=== PATIENT | female | born 1990 | race African-American/Black ===

== ENCOUNTER 2019-04-09 10:42 | Emergency (ER) | payer OTHER ==
[~2019-04-09] VITALS: Ht 152.4 cm; Wt 54.4 kg
[~2019-04-09 10:42] MED LIST: AMOXICILLIN 50500 M1 PO; CEPHALEXIN 250250 MG PO; CIPROFLOXACIN500 M1 PO; HUMALOG100 UNIT/1; LANTUS SUBQ; MACROBID 100 M100 M1 PO
[2019-04-09 10:44] VITALS: BP 102/59
[2019-04-09] MEDS ORDERED: LANTUS100 UNIT/M SUBQ (11:52)
[2019-04-09] MEDS ORDERED: HUMALOG100 UNIT/1 SUBQ (11:52)
== END 2019-04-09 11:56 | disposition home or self-care (01) ==
LOC: ER 10:42
DX: E11.9 Type 2 diabetes mellitus without complications (principal); H53.8 Other visual disturbances; Z76.0 Encounter for issue of repeat prescription; Z79.4 Long term (current) use of insulin; Z88.2 Allergy status to sulfonamides

== ENCOUNTER 2019-08-25 06:06 | Emergency (ER) | payer OTHER ==
[~2019-08-25] VITALS: Ht 160 cm; Wt 52.2 kg
[~2019-08-25 06:06] MED LIST changes: +HUMALOG100 UNIT/1 SUBQ; +LANTUS100 UNIT/M SUBQ
[2019-08-25] MEDS ORDERED: HUMALOG100 UNIT/1 SUBQ (06:21)
[2019-08-25 06:50] LABS: ABSOLUTE NEUTROPHILS 4.2 thou/uL (1.4-8.2); BASOPHILS 0.1 % (0.0-2.0); EOSINOPHILS 0.1 % (0.0-3.0); HEMATOCRIT 32.1 % (37.0-47.0); HEMOGLOBIN 10.4 gm/dL (12.0-15.0); LYMPHOCYTES 15.3 % (24.0-44.0); MCHC 32.4 g/dL (28.0-37.0); MCV 77.3 fL (80.0-100.0); PLATELET COUNT 265 thou/uL (150-400); POLYS 73.5 % (36.0-66.0); RBC 4.16 mil/uL (4.20-5.00); WBC 5.7 thou/uL (4.0-11.0)
[2019-08-25 06:57] LABS: CALCIUM 9.2 mg/dL (8.5-10.1); CREATININE 0.9 mg/dL (0.6-1.0); POTASSIUM 3.9 mmol/L (3.5-5.1)
[2019-08-25 07:03] LABS: ALBUMIN 3.2 g/dL (3.4-5.0); DIRECT BILIRUBIN 0.1 mg/dL (<0.1-0.2); TOTAL BILIRUBIN 0.5 mg/dL (<0.1-1.0); TOTAL PROTEIN 7.7 g/dL (6.4-8.2)
[2019-08-25 07:40] LABS: URINE BILIRUBIN NEGATIVE (Negative); URINE BLOOD NEGATIVE (Negative); URINE CLARITY CLEAR; URINE COLOR YELLOW; URINE GLUCOSE-RANDOM* 2+ (Negative); URINE KETONES 3+ (Negative); URINE NITRITE-REFLEX NEGATIVE (Negative); URINE PROTEIN (DIPSTICK) TRACE (Negative); URINE UROBILINOGEN 0.2 E.U./dl (0.2-1.0)
[2019-08-25 07:44] LABS: URINE LEUKOCYTES-REFLEX 1+ (Negative)
[2019-08-25 08:09] LABS: CASTS None Seen /LPF (None Seen); MUCUS 0-3 Light strn/LPF (None Seen); SQUAMOUS >10 Many /LPF (0-3)
[2019-08-25 08:10] LABS: BACTERIA-REFLEX >30 Many /HPF (None Seen); CRYSTALS None Seen /LPF (None Seen); URINE RBC None Seen /HPF (0-2); URINE WBC-REFLEX 6-15 Few /HPF (0-5)
[2019-08-25 08:27] VITALS: BP 102/64
--- NOTE | 2019-08-25 09:05 | EKG ---
[place] [address] [facility] [address] [place] [address] ELECTROCARDIOGRAM REPORT Name: KEKE DIGGS Room #: [facility]#: [id number] Admission: 08/25/19 Attend Phys: Discharge: 08/25/19 Date of : 89 Report #: [id number] THIS REPORT FOR: //name// [facility] ED Test Date: 2019-08-25 Test Time: 06:12:47 Pat Name: KEKE DIGGS Department: Room: Gender: F Food Quality Technician: RANDOLPH : 1990 Requested By: Justice Lozano Order Number: [id number] MD: Ranjit Jones Measurements Intervals [place] Rate: 112 P: 52 LA: 143 QRS: 53 QRSD: 80 T: -73 QT: 301 QTc: 411 Interpretive Statements Sinus tachycardia RSR' in V1 or V2, probably normal variant Nonspecific ST and T wave abnormality No previous ECG available for comparison Electronically Signed On 08-25-2019 9:05:09 ALUM MIXER by aRnjit Jones [email or web address] <ELECTRONICALLY SIGNED> By: Ranjit Jones MD, [facility] 08/25/19904 1 1 Ranjit Jones MD, FACC /EPI
== END 2019-08-25 08:27 | disposition home or self-care (01) ==
LOC: ER 06:06
PROVIDERS: Emergency Medicine
DX: J98.8 Other specified respiratory disorders (principal); E10.9 Type 1 diabetes mellitus without complications; Z79.4 Long term (current) use of insulin; Z88.2 Allergy status to sulfonamides

== ENCOUNTER 2019-08-26 17:05 | Inpatient (IN) | payer OTHER ==
[~2019-08-26] VITALS: Ht 152.4 cm; Wt 43.1 kg
--- NOTE | 2019-08-26 17:11 | NUR ---
Pt refusing vital signs until she is able to go to the bathroom. Attempted to assist to the bathroom, refusing to get out of bed to use restroom. Call light placed in reach, charge nurse informed.
[2019-08-26 17:12] VITALS: BP 137/67
--- NOTE | 2019-08-26 17:30 | NUR ---
PT IS USUALLY AMBULATORY AND IT IS REPORTED TO THIS SALES REPRESENTATIVE BUSINESS COURSES BY FAMILY MEMEBER THAT HE IS UPSET, HE STATES THAT PT HAS URINATED IN THE BED AND SHE IS SITTING IN IT. THIS SALES REPRESENTATIVE BUSINESS COURSES AT BEDSIDE AND ASSISTS CLEANING UP THE BED AND GIVEN PT PAPER SCRUB BOTTOMS. PT IS ASKED AT THIS TIME WHAT HAPPENED AND PT STATES THAT SHE TOLD HE NURSE THAT SHE HAD TO URINATE. NURSE DID SPEAK TO THIS SALES REPRESENTATIVE BUSINESS COURSES ABOUT PT NOT COOPERATIVE AND DID STATE TO HER THAT SHE NEEDED TO USE THE RESTROOM BUT REFUSED TO STAND AND PIVOT TO W/C OR COMMODE TO GO. AT THIS TIME PT AMBULATES WITH MINIMAL ASSIST FROM FAMILY DOWN THE PORRAS TO THE RESTROOM AND BACK WHILE THIS SALES REPRESENTATIVE BUSINESS COURSES CLEANS THE ROOM. AT THIS TIME PT SETTLED BACK IN BED, SHE CONTINUES TO REFUSE V/S
--- NOTE | 2019-08-26 18:32 | NUR ---
PT REFUSING VS, IN ROOM WITH LIGHTS OFF. REFUSING LABS AND NASAL SWAB AT THIS TIME. FAMILY AT BEDSIDE. STATES THAT PROVIDER STATED HE WOULD ORDER INSULIN FOR PATIENT. THIS DIRECTOR OF ATHLETICS COMMUNICATED WITH PROVIDER, WAS TOLD THAT INSULIN WAS NOT BEING ORDERED. COMMUNICATED WITH PATIENT AND FAMILY THAT INSULIN WOULD NOT BE ORDERED UNTIL ABLE TO DETERMINE CURRENT BLOOD GLUCOSE. EDUCATION PROVIDED REGARDING INSULIN AND ADVERSE EFFECTS IF GIVEN WITHOUT BLOOD GLUCOSE MONITORING.
--- NOTE | 2019-08-26 19:18 | NUR ---
PT ALLOWED NURSE TO OBTAIN VITALS, DRAW BLOOD AND GIVE MEDICATION ORDERED. PT STATES THAT SHE NEEDS TO USE RESTROOM. PT ASSISTED TO SIDE OF BED. REPORTS THAT SHE IS TOO WEAK TO GET TO BATHROOM. REQUESTED WHEELCHAIR. THIS REPAIR DEPARTMENT MANAGER SPOKE WITH PATIENT AND FAMILY ABOUT CONCERNS THAT PT NOT STRONG ENOUGH TO AMBULATE TO BATHROOM. INQUIRED IF FAMILY HAS SUPPORT AT HOME IF PT IS WEAK. FAMILY STATED SUPPORT NOT AVAILABLE. INFORMED FAMILY AND PT THAT THIS REPAIR DEPARTMENT MANAGER WOULD NOTIFY PROVIDER AND THAT THE WEAKNESS WAS A CONCERN. FAMILY STATED THEY COULD GET PATEITN UP TO WALK TO BATHROOM. REQUESTED THEY STAY AT BEDSIDE AND THIS REPAIR DEPARTMENT MANAGER WOULD GET COMMODE. WENT TO GET COMMODE AND CAME BACK IMMEDIATELY. PT FOUND STANDING AT BEDSIDE WITH HANDS BEHIND HER ON THE BED, URINATING ON THE FLOOR. PROVIDER NOTIFIED. ASSISTED PT BACK TO BED, CLEANED PT, BED AND NYA.
[2019-08-26 19:35] LABS: HEMATOCRIT 42.2 % (37.0-47.0); MCH 25.2 pg (26.0-34.0); RBC 5.03 mil/uL (4.20-5.00); RDW 15.7 % (10.5-14.5)
[2019-08-26 19:36] LABS: HEMOGLOBIN 12.7 gm/dL (12.0-15.0); MCV 83.9 fL (80.0-100.0); PLATELET COUNT 468 thou/uL (150-400); WBC 21.3 thou/uL (4.0-11.0)
[2019-08-26 19:41] LABS: BE(vivo) -28.7 mmol/L (-2 to +3); HCO3 4.7 mmol/L (22.0-26.0); PCO2 VENOUS 28.1 mmHg (41.0-51.0); PO2 VENOUS 54.9 mmHg (35.0-45.0)
[2019-08-26 19:54] LABS: ALBUMIN 4.1 g/dL (3.4-5.0); BUN 18 mg/dL (7-18); CALCIUM 10.2 mg/dL (8.5-10.1); CHLORIDE 99 mmol/L (98-107); CREATININE 1.5 mg/dL (0.6-1.0); SGOT 45 U/L (15-37); SGPT 42 U/L (30-65); SODIUM 132 mmol/L (136-145); TOTAL BILIRUBIN 0.5 mg/dL (<0.1-1.0); TOTAL PROTEIN 10.6 g/dL (6.4-8.2)
[2019-08-26 19:55] LABS: ANION GAP 28 mmol/L (7-16)
[2019-08-26 20:06] LABS: CO2 < 5 mmol/L (21-32); GLUCOSE 563 mg/dL (74-106); POTASSIUM 7.8 mmol/L (3.5-5.1)
[2019-08-26 20:28] LABS: URINE BILIRUBIN NEGATIVE (Negative); URINE BLOOD TRACE (Negative); URINE CLARITY CLEAR; URINE COLOR YELLOW; URINE GLUCOSE-RANDOM* 2+ (Negative); URINE KETONES 3+ (Negative); URINE LEUKOCYTES-REFLEX NEGATIVE (Negative); URINE NITRITE-REFLEX NEGATIVE (Negative); URINE PROTEIN (DIPSTICK) TRACE (Negative); URINE UROBILINOGEN 0.2 E.U./dl (0.2-1.0)
[2019-08-26 20:41] LABS: ABSOLUTE NEUTROPHILS 15.3 thou/uL (1.4-8.2); ANISOCYTOSIS 2+; BURR CELLS 1+; PLATELET ESTIMATE INCREASED; POIKILOCYTOSIS 2+
[2019-08-26 23:50] VITALS: BP 133/77
[2019-08-27] VITALS (43 sets, daily range): BP systolic 95–136; BP diastolic 54–85
--- NOTE | 2019-08-27 | NUR ---
ED NURSE ATTEMPTED TO CALL REPORT TO INPATIENT NURSE, WAS TOLD SHE WILL HAVE TO CALL BACK
[2019-08-27 00:43] LABS: ALBUMIN 3.3 g/dL (3.4-5.0); BUN 18 mg/dL (7-18); CALCIUM 9.6 mg/dL (8.5-10.1); CHLORIDE 111 mmol/L (98-107); CREATININE 1.4 mg/dL (0.6-1.0); GLUCOSE 496 mg/dL (74-106); PHOSPHORUS 7.2 mg/dL (2.5-4.9)
[2019-08-27 00:48] LABS: ANION GAP 28 mmol/L (7-16); POTASSIUM 5.5 mmol/L (3.5-5.1); SODIUM 144 mmol/L (136-145)
[2019-08-27 00:50] LABS: CO2 < 5 mmol/L (21-32)
--- NOTE | 2019-08-27 00:57 | NUR ---
0030 PT ARRIVED FROM ED VIA STRETCHER. PLACED ON TELEMETRY. PT REMAINS ST AND WITH RR IN 30s. UNABLE TO GET A TEMP ON PT SO PLACED EPI HUGGER ON. RECEIVED RECENT LABS BACK FROM MIDNIGHT DRAW. WILL CONTINUE TO FOLLOW THE PROTOCOL FOR DKA
[2019-08-27 05:23] LABS: HEMATOCRIT 41.1 % (37.0-47.0); HEMOGLOBIN 11.9 gm/dL (12.0-15.0); MCH 24.8 pg (26.0-34.0); MCHC 28.9 g/dL (28.0-37.0); MCV 85.8 fL (80.0-100.0); RBC 4.79 mil/uL (4.20-5.00); RDW 16.6 % (10.5-14.5); WBC 19.7 thou/uL (4.0-11.0)
[2019-08-27 05:29] LABS: MAGNESIUM 2.3 mg/dL (1.8-2.4); PHOSPHORUS 3.9 mg/dL (2.5-4.9)
[2019-08-27 05:56] LABS: ALBUMIN 3.4 g/dL (3.4-5.0); ANION GAP 29 mmol/L (7-16); BUN 17 mg/dL (7-18); CALCIUM 9.5 mg/dL (8.5-10.1); CHLORIDE 110 mmol/L (98-107); CREATININE 1.5 mg/dL (0.6-1.0); GLUCOSE 423 mg/dL (74-106); POTASSIUM 5.1 mmol/L (3.5-5.1); SGOT 43 U/L (15-37); SGPT 31 U/L (30-65); SODIUM 144 mmol/L (136-145); TOTAL BILIRUBIN 0.4 mg/dL (<0.1-1.0); TOTAL PROTEIN 9.7 g/dL (6.4-8.2)
[2019-08-27 06:00] LABS: CO2 < 5 mmol/L (21-32)
[2019-08-27 08:52] LABS: CALCIUM 9.6 mg/dL (8.5-10.1); CREATININE 1.5 mg/dL (0.6-1.0); MAGNESIUM 1.8 mg/dL (1.8-2.4); PHOSPHORUS 0.7 mg/dL (2.5-4.9)
[2019-08-27 08:59] LABS: POTASSIUM 3.3 mmol/L (3.5-5.1)
--- NOTE | 2019-08-27 09:25 | HC ---
[facility] [place] [address] [address] CONSULTATION Name: KEKE DIGGS Room #: 236-P [facility] IN M.R.#: [id number] Admission: 08/26/19 Attend Phys: River Iqbal Discharge: Date of : [birth year] Report #: [id number] THIS REPORT FOR: //name// CC: FAM physician/PCP River Iqbal DATE OF SERVICE: 08/27/2019 ENDOCRINE CONSULTATION NOTE CONSULTING PHYSICIAN: Dr. Braun. REASON FOR CONSULTATION: Diabetic ketoacidosis, uncontrolled type 1 diabetes mellitus. HISTORY OF PRESENT ILLNESS: This is a 28-year-old female patient whose medical background is primarily remarkable for type 1 diabetes mellitus that was diagnosed at the age of 12 years. The patient presented to the ER yesterday with a 24-hour course of rapidly progressive abdominal pain, nausea, vomiting as well as diarrhea. The patient appreciated fever or chills coming in. On arrival, the patient was found to be in diabetic ketoacidosis and was admitted for further care and monitoring. Again, the patient was diagnosed with type 1 diabetes mellitus at the age of 12 years and she is maintained on a regimen of Lantus insulin 20 units daily as well as Humalog before meals, taken variably as per her blood sugar and meal size, but could run a dose of up to 10 units with meals. The patient notes that she has had blood glucose values that have primarily in the 100-150 mg/dL range and has not had major difficulties with hypoglycemia. The patient maintains that she had been compliant with insulin intake and did not have major therapeutic interruptions over the past few weeks. The patient is not aware of issues of diabetic retinopathy, diabetic nephropathy or neuropathy. She does not take any other medicines besides insulin. REVIEW OF SYSTEMS: CONSTITUTIONAL: Fatigue, tiredness, fever or chills. No major weight changes over the past few months. HEENT: Negative for sinus pain or ear drainage. PULMONARY: Occasional shortness of breath and cough, but no hemoptysis. CARDIAC: No chest pain, but had intermittent palpitations over the past few days. Slight lightheadedness. NEUROLOGY: Negative for loss of consciousness, severe, recurrent headaches or seizure activity. GASTROINTESTINAL: Abdominal discomfort, nausea, vomiting, diarrhea. No hematemesis. [facility] [address] [place] [address] CONSULTATION Name: KEKE DIGGS LUIS ENRIQUE Room #: [address] [place] [address] IN M.R.#: [id number] Admission: 08/26/19 Attend Phys: River Iqbal Discharge: Date of : 89 Report #: [id number] SKIN: No ulceration, rash or other major dermatologic issues. PSYCHIATRIC: Negative for delusions, hallucinations. Otherwise, review of systems noncontributory other than those mentioned in HPI. PAST MEDICAL HISTORY: Type 1 diabetes mellitus as noted above. OUTPATIENT MEDICATIONS: 1. Lantus insulin 20 units q.p.m. 2. Humalog insulin up to 10 units t.i.d. a.c. ALLERGIES: SULFA. FAMILY HISTORY: Noncontributory. SOCIAL HISTORY: The patient denies use of tobacco, alcohol or illicit drugs. PHYSICAL EXAMINATION: GENERAL: A young -[place] female patient who appears lethargic, tired and somnolent, but not in apparent pain. VITAL SIGNS: Blood pressure 96/59 mmHg, heart rate is 115 beats per minute, respirations 27 per minute, temperature of 36.4 degrees. CONSTITUTIONAL: The patient appears lethargic, somnolent, but not in apparent pain or distress. HEENT: Anicteric sclerae. Intact extraocular motions. NECK: Supple, without JVD, carotid bruits or lymphadenopathy. I do not appreciate thyromegaly. CHEST: Noted for moderate entry bilaterally. Clear to auscultation. HEART: Regular rate and rhythm without murmurs or gallops. ABDOMEN: Soft and lax with generalized discomfort on deep palpation. No guarding, no organomegaly. Active bowel sounds. EXTREMITIES: Lower extremity exam is negative for ankle edema, skin breaks, ulcerations or other deformities. NEUROLOGIC: Lethargic, somnolent, but arousable and interactive. Largely has a nonfocal neurological examination. PSYCH: Flat mood and affect, but able to answer my questions appropriately. LABORATORY DATA: Blood glucose on arrival was 455 mg/dL and has over the course of the past 6 hours drop to 206 mg/dL. Otherwise, sodium 144, potassium 5.1, chloride 110, CO2 less than 5, anion gap 29, BUN 17, creatinine 1.5, glucose 423. AST 43, total bilirubin 0.4, calcium 9.5, phosphorus 3.9, magnesium 2.3, alkaline phosphatase 160, total protein 9.7, albumin 3.4, EGFR 51. Lactic acid 4.0. Acetone was high. White blood count 19.7, hemoglobin 11.9, hematocrit 41.1, platelets 425, pH 6.838, pCO2 28.1, bicarb 4.7, pO2 54.9. ASSESSMENT AND PLAN: 1. Diabetic ketoacidosis. The patient presents in diabetic ketoacidosis with a [facility] [address] [place] [address] CONSULTATION Name: KEKE DIGGS Room #: 236-P [facility] IN M.R.#: [id number] Admission: 08/26/19 Attend Phys: River Iqbal Discharge: Date of : [birth year] Report #: [id number] rather wide anion gap and severe acidosis. Currently, she is being appropriately treated with aggressive intravenous fluid management, IV insulin running currently at a rate of 30 units an hour. Her insulin intake will be adjusted hourly as per hour intravenous insulin protocol. Her electrolytes will be monitored intensively during the first 24 hours to address any emerging needs or abnormalities. 2. Type 1 diabetes mellitus. This is a longstanding diagnosis for the patient. She reports blood glucose values that appear to be reasonably controlled for the most part. I will obtain hemoglobin A1c to get a more objective sense of her overall outlook over the past few months. As noted above, the patient will be managed with a standard DKA protocol with IV insulin and once deemed stable, we could consider transition to subcutaneous insulin therapy. Her specific insulin regimen will be determined based on her insulin needs recorded once she is more stable. I certainly appreciate this consultation by Dr. Braun. <ELECTRONICALLY SIGNED> By: Juan Carlos Ramirez MD 08/27/1925 8 Juan Carlos Ramirez MD /nt
--- NOTE | 2019-08-27 09:44 | EKG ---
[address] [place] [address] ELECTROCARDIOGRAM REPORT Name: KEKE DIGGS Room #: 236-P ADM IN M.R.#: [id number] Admission: 08/26/19 Attend Phys: River Iqbal Discharge: Date of : 89 Report #: [id number] THIS REPORT FOR: //name// [facility] ED Test Date: 2019-08-26 Test Time: 20:17:01 Pat Name: KEKE DIGGS Department: Room: [facility] Gender: F Business Account Executive: HIRAM : 1990 Requested By: Curtis Zapien Order Number: [id number] MD: Ranjit Jones Measurements Intervals [place] Rate: 107 P: 88 VT: 174 QRS: 74 QRSD: 107 T: 51 QT: 337 QTc: 450 Interpretive Statements Sinus tachycardia Biatrial enlargement RSR' in V1 or V2, probably normal variant Compared to ECG 08/25/2019 06:12:47 Atrial abnormality now present ST (T wave) deviation no longer present Electronically Signed On 08-27-2019 9:44:29 METER CHANGES RECORDS CLERK by Ranjit Jones [email or web address] <ELECTRONICALLY SIGNED> By: Ranjit Jones MD, [facility] 08/27/19 0944 16 16 Ranjit Jones MD, [facility] /EPI
--- NOTE | 2019-08-27 14:08 | NUR ---
PT ADMITTED RELATED TO DKA, NAUSEA AND VOMITING, AND ABD PAIN. CM REVIEWED CHART AND SPOKE WITH CARE TEAM. CM MET WITH PT, SIG OTHER, AND FATHER AT BEDSIDE THIS DAY. PT WAS ORIENTED TO SELF BUT WAS SLEEPY. SHE, SIG OTHER, AND FATHER ALL ANSWERED ASSESSMENT QUESTIONS. IT WAS INDICATED THAT PT AND SIG OTHER KIANNA LIVE IN AN APARTMENT WITH WITH A CHILD AND 15 STEPS TO ENTER AND NO STEPS INSIDE. PT HAD BEEN INDEPDENENT WITH GAIT AND ADLS SEAT PACK INSPECTOR. SIG OTHER INDICATED THAT PT HAS ALL MEDICATIONS AND SUPPLIES NEEDED TO MONITOR HER BLOOD SUGARS AT HOME. PT INDICATED SHE DIDN'T HAVE A PCP RIGHT NOW. CM PROVIDED THEM LIST OF PCP'S HERE AT [facility]. PT INDICATED SHE PLANS TO RETURN HOME ONCE MEDICALLY STABLE. CM TO FOLLOW INDICATED WITH DC PLANNING.
[2019-08-27 14:25] LABS: ALBUMIN 2.7 g/dL (3.4-5.0); CALCIUM 9.5 mg/dL (8.5-10.1); CREATININE 1.3 mg/dL (0.6-1.0); MAGNESIUM 2.2 mg/dL (1.8-2.4); PHOSPHORUS 1.8 mg/dL (2.5-4.9); POTASSIUM 3.8 mmol/L (3.5-5.1)
[2019-08-27 18:54] LABS: CALCIUM 9.1 mg/dL (8.5-10.1); MAGNESIUM 1.9 mg/dL (1.8-2.4); PHOSPHORUS 1.9 mg/dL (2.5-4.9)
--- NOTE | 2019-08-27 19:36 | NUR ---
PATIENT PROGRESSING TOWARDS OUTCOME GOALS EVIDENT BY. ANION GAP HAS CLOSED AND SERUM POTASSIUM AND MAG LEVELS ARE WITHIN NORMAL RANGE WITH REPLACEMENT. REMAINS ON INSULIN DRIP TO MAINTAIN BLOOD GLUCOSE LEVEL UNDER 200. URINE OUTPUT GREATER THAN 50 ML/HR AND MEAN ARTERIAL PRESSURE IS GREATER THAN 65 MMGH, MONITOR SHOWING ST IN THE LOW 100'S AND RESP RATE REMAINS IN THE 20'S UNLESS ANXIOUS AND THEN ELEVATED. PAIN LEVEL ADDRESSED AND MEDICATED WITH PATIENT RESTING QUIETLY. NO DIARRHEA TODAY. PATIENT AND FAMILY UPDATED TO STATUS AND POC AND REASSURANCE GIVEN AND QUESTIONS ADDRESSED.
[2019-08-28] VITALS (12 sets, daily range): BP systolic 102–121; BP diastolic 62–90
[2019-08-28 00:29] LABS: ALBUMIN 2.5 g/dL (3.4-5.0); CALCIUM 8.4 mg/dL (8.5-10.1); MAGNESIUM 1.6 mg/dL (1.8-2.4); PHOSPHORUS 1.6 mg/dL (2.5-4.9); POTASSIUM 3.4 mmol/L (3.5-5.1)
--- NOTE | 2019-08-28 05:44 | NUR ---
Pt remains very weak, and reports feeling dizzy, she has been on bedrest through this shift. Monitor reads ST, low 100's and SR this morning 94 bpm and above, BP has been stable, low grade temp (99.4) noted at 0400. Pt had approx 150 ml's of dark emesis, and dry heaves, she declined any prn zofran, and was able to take two bites of sugar free jello. Otherwise, her assessment is benigh, she is on room air, LCTA, sats 94% and above. Abd is soft, hypoactive BS noted. Ac is patent draining approx 50 ml/hr of clear, dark yellow urine. She remains on hourly accuchecks, and insulin is infusing at 6 units/hr at this time.
[2019-08-28 09:01] LABS: MAGNESIUM 1.5 mg/dL (1.8-2.4); POTASSIUM 3.3 mmol/L (3.5-5.1)
[2019-08-28 14:24] LABS: HEMATOCRIT 28.5 % (37.0-47.0); MCH 24.9 pg (26.0-34.0); MCHC 32.7 g/dL (28.0-37.0); RBC 3.75 mil/uL (4.20-5.00); RDW 15.5 % (10.5-14.5); WBC 9.6 thou/uL (4.0-11.0)
[2019-08-28 14:35] LABS: HEMOGLOBIN 9.3 gm/dL (12.0-15.0); MCV 75.9 fL (80.0-100.0)
--- NOTE | 2019-08-28 15:15 | NUR ---
CARE TEAM INDICATED THAT PT IS PROGRESSING SLOWLY. PT WAS STARTED ON FULL LIQUID DIET, ON IV ABX. PT WILL LIKELY REMAIN HOSPITALIZED OVER THE WEEKEND. IT IS ANTICIPATED THAT PT WILL LIKELY DISHCARGE HOME WITH NO NEEDS ONCE MEDICALLY STABLE. CM TO FOLLOW INDICATED WITH DC PLANNING.
[2019-08-28 16:33] LABS: ALBUMIN 2.4 g/dL (3.4-5.0); CALCIUM 8.2 mg/dL (8.5-10.1); CREATININE 0.9 mg/dL (0.6-1.0); PHOSPHORUS 0.8 mg/dL (2.5-4.9); POTASSIUM 3.3 mmol/L (3.5-5.1)
--- NOTE | 2019-08-28 17:28 | NUR ---
VAT CONSULTED FOR A PICC FOR THIS PT IN ICU WITH DKA. A 5FRTLPICC PLACED RUAB. PULLED BACK 2CM AFTER CXR, PLEASE SEE INSERTION NI FOR DETAILS
--- NOTE | 2019-08-28 20:40 | NUR ---
PATIENT REMAINS ON INSULIN GTT WITH A BLOOD SUGAR OF 249. SPOKE WITH YUSUF KESSLER REGAURDING THE SCHEDULED INSULIN DUE TO BE GIVEN AT 2100 08/28. PER YUSUF KESSLER WE WILL HOLD THE SCHEDULED INSULIN DOSE, CONTINUE WITH THE INSULIN GTT THROUGHOUT THE NIGHT, AND REASSESS IN THE MORNING.
[2019-08-29] VITALS (11 sets, daily range): BP systolic 104–127; BP diastolic 66–84
[2019-08-29 00:20] LABS: ALBUMIN 2.4 g/dL (3.4-5.0); CALCIUM 8.1 mg/dL (8.5-10.1); CREATININE 0.9 mg/dL (0.6-1.0); MAGNESIUM 1.6 mg/dL (1.8-2.4); PHOSPHORUS 0.5 mg/dL (2.5-4.9); POTASSIUM 3.8 mmol/L (3.5-5.1)
[2019-08-29 04:56] LABS: ALBUMIN 2.4 g/dL (3.4-5.0); CALCIUM 8.5 mg/dL (8.5-10.1); CREATININE 0.7 mg/dL (0.6-1.0); MAGNESIUM 3.6 mg/dL (1.8-2.4); PHOSPHORUS 0.5 mg/dL (2.5-4.9); POTASSIUM 3.3 mmol/L (3.5-5.1)
[2019-08-29 10:04] LABS: ALBUMIN 2.6 g/dL (3.4-5.0); CALCIUM 8.7 mg/dL (8.5-10.1); CREATININE 0.9 mg/dL (0.6-1.0); PHOSPHORUS 0.7 mg/dL (2.5-4.9); POTASSIUM 4.2 mmol/L (3.5-5.1)
--- NOTE | 2019-08-29 19:00 | NUR ---
Report given to RN assuming care. Pt converted to subcutaneous Insulin today. Dr Iqbal notified pt's fingerstick glucose levels and Insulin dosing adjusted accordingly. Pt tachycardic throughout the day. Maintained adequate oxygenation on room air. Poor appetite.
[2019-08-30] VITALS (7 sets, daily range): BP systolic 107–116; BP diastolic 64–72
[2019-08-30 04:34] LABS: CALCIUM 8.6 mg/dL (8.5-10.1); CREATININE 0.7 mg/dL (0.6-1.0)
--- NOTE | 2019-08-30 05:37 | NUR ---
PT ALERT AND ORIENTED. PAIN CONTROLLED THROUGHOUT THE NIGHT. PT WALKED AROUND THE UNIT TWICE. VITAL SIGNS STABLE. PT HAS POSTITIVE OUTLOOK AND HAPPY WITH RECOVERY. CONTINUE TO MONITOR. PT PROGRESSING TOWARDS GOALS.
--- NOTE | 2019-08-30 05:40 | NUR ---
PT ALERT AND ORIENTED. PT TACHYCARDIC (RATE AROUNG 130'S) OCASSIONALLY AT NIGHT. BLOOD GLUCOSE CONTROLLED WITH SLIDING SCALE. PT PROGRESSING TOWARDS GOALS. POSSIBLE TRANSFER TO THE FLOOR.
--- NOTE | 2019-08-30 10:00 | NUR ---
0800-Pt was awake, oriented x 4. Pt was cooperative. LS clear but coarse on LLB. SR/STachycardia on monitor. No edema was present. Skin was intact. BS 336. Lantus 30unit was administered per order. Set schedule of insulin was discontinued since pt was concerned since her appetite was not great. 9units of insulin was administered per SS. Will continue to monitor
--- NOTE | 2019-08-30 10:04 | NUR ---
TRANSFER NOTES; Transfer information was given to pt and pt's mother. Pt's belongings were w/ pt. Pt was transferred to [facility] via W/C by the other RN, Angelique. Report was given to REMI Alcantara
--- NOTE | 2019-08-30 15:20 | NUR ---
Patient arrived on unit at 1000. Patient was transferred from ICU after being admitted for Colitis, DKA, nausea and abdominal pain. Patient has not complained of any of these symptoms thus far today. Patient has Sinus Tachycardia, Diabetes Type I. Magnesium needs to be drawn this HS. Patient has a 3 Lumen Picc Line. IV Team has been notified. Family and friends have been at bedside. Blood sugar was 188 at 1200. Insulin given as ordered. Will continue to monitor.
[2019-08-31 04:07] VITALS: BP 112/61
--- NOTE | 2019-08-31 07:48 | NUR ---
ASSESSMENT COMPLETED.PT DENIED PAIN/N/V.PT UP ADLIB IN ROOM.PT CONT ON IV ABX ORDERED.BG MONITORED WAS 183,TX WITH INSULIN.PT LOOKING FORWARD TO BE DC'D TODAY.REPORT TO AM NURSE.
[2019-08-31 08:24] VITALS: BP 109/63
[2019-08-31] MEDS ORDERED: LEVAQUIN 500 M500 M3 PO (09:47)
[2019-08-31] MEDS ORDERED: HUMALOG100 UNIT/1 SUBQ (09:48)
[2019-08-31] MEDS ORDERED: LANTUS SUBQ (09:48)
[2019-08-31 10:47] VITALS: BP 109/63
--- NOTE | 2019-08-31 11:08 | HC ---
[facility] [place] [address] CONSULTATION Name: KEKE DIGGS Room #: 439-P ADM IN M.R.#: [id number] Admission: 08/26/19 Attend Phys: River Iqbal Discharge: Date of : 89 Report #: [id number] THIS REPORT FOR: //name// CC: ERIC physician/PCP River Iqbal SUBJECTIVE: A 28-year-old black female admitted with DKA. The patient apparently has had diabetes since age 13 and has been on insulin ever since. She is on variable lispro t.i.d. depending on carbohydrate intake and 20 units of glargine at bedtime. She is quite evasive in all historical details. She states her glucoses have generally been as high as the 300-400 range. Her last hemoglobin A1c was 12.5. She offers no explanation for the recent episode of DKA that led to admission. Since hospitalization, the patient has been treated with hydration and variable dose insulin. She is still experiencing some nausea with variable oral intake. After extensive discussion with the patient, the patient became somewhat hostile and combative along with her coverer. They demanded that I answer a number of questions regarding care up to this point, which I was not able to do. They wanted to know why she was not able to be discharged immediately and I was unable to answer since I was seeing her for the first time. They demanded to know what insulin doses I was going to utilize in her treatment, which I was unable to answer as I have no idea what her sugar will be at the time those orders need to be written and administered. At that point, I asked the patient whether she desired my assistance in improving her glucose control, which would allow not only her speedy dismissal from the hospital, but also complication prevention and improve length and quality of life. The patient was unable to state that she wished my continued care. Therefore, I decided at that time to explain to her that I would not continue care insulin dose adjustments, etc., as she was being hostile to my suggestions for improvement in care. I will sign off on the patient's case at this time. Thank you for this consultation. <ELECTRONICALLY SIGNED> By: J Carlos Peace MD 08/31/19 1108 [id number] J Carlos Peace MD /nt
--- NOTE | 2019-08-31 11:09 | NUR ---
ASSUMED CARE OF THE PT AT 0700. PT WANST TO BE DISCHARGED. PICC LINE REMOVED AND NO BLEEDING AT SITE, COVERED SITE WITH CLEAR BANDAGE. PT RECEIVED INSULIN FOR BS AND REFUSED SOME INSULIN. PT IS DISCAHRGING TO HOME. DOCTORS NOTE FOR PT TO BE SIGNED AND SENT WITH PT ALONG WITH PRESCRIPTIONS.
== END 2019-08-31 11:30 | disposition home or self-care (01) | DRG 637 ==
LOC: ER 17:05 → EROBS 23:25 → ICU 23:25 → 4S 08-30 10:26 → ENTRNSPT 08-31 11:23 → EDTRNSPTSTS 08-31 11:25 → 4S 08-31 11:30
PROVIDERS: Hospitalist; Nurse Practitioner; Nurse Practitioner Family; Physician Assistant; ADMIT Hospitalist
PROC: 02HV33Z Insertion of Infusion Device into Superior Vena Cava, Percutaneous Approach (ICD-10-PCS; principal; 2019-08-28)
DX: E10.10 Type 1 diabetes mellitus with ketoacidosis without coma (principal); N17.0 Acute kidney failure with tubular necrosis; E87.5 Hyperkalemia; D72.829 Elevated white blood cell count, unspecified; K52.9 Noninfective gastroenteritis and colitis, unspecified; E87.6 Hypokalemia; E83.42 Hypomagnesemia; Z88.2 Allergy status to sulfonamides; Z79.4 Long term (current) use of insulin; Z79.899 Other long term (current) drug therapy
CPT/HCPCS: 10078; 10102; 27000